=== PATIENT | male | born 1960 | race Caucasian/White ===

== ENCOUNTER 2018-08-19 08:12 | Day surgery (SDC) | payer OTHER ==
[~2018-08-19] VITALS: Ht 147.3 cm; Wt 55.2 kg
[2018-08-19] VITALS (13 sets, daily range): BP systolic 112–159; BP diastolic 58–80; PULSE 58–64; RESP 15–23; Ht 147.3 cm; Wt 55.2 kg
[~2018-08-19 08:12] MED LIST: LIDOCAINE 1% (MPF) 5 ML VIAL INJ ONE
[2018-08-19] MEDS ORDERED: METF500T24 PO (09:03)
[2018-08-19] MEDS ORDERED: LISI40TA3 PO (09:04)
[2018-08-19] MEDS ORDERED: AMLO5TAB4 PO (09:04)
[2018-08-19] MEDS ORDERED: ATOR40TA68 PO (09:05)
[2018-08-19] MEDS ORDERED: NEPAFENAC 0.1% 3 ML OPH OPER SCH (09:30)
[2018-08-19] MEDS ORDERED: CYCLOPENTOLATE 2% 2 ML OPH OPER SCH (09:30)
[2018-08-19] MEDS ORDERED: SOD CHLORIDE 0.9% 1,000 ML IV SCH (09:30)
[2018-08-19] MEDS ORDERED: PHENYLephrine 10% 5 ML OPH OPER SCH (09:30)
[2018-08-19] MEDS ORDERED: MOXIFLOXACIN 0.5% 3 ML OPH OPER ONE (09:30)
[2018-08-19] MEDS ORDERED: TIMOLOL MALEATE/PF 0.5% OCCUDOSE (0.3 ML) ONE (10:30)
[2018-08-19] MEDS ORDERED: EPINEPHrine 1 MG INJ ONE (10:30)
[2018-08-19] MEDS ORDERED: LIDOCAINE 1% (MPF) 5 ML VIAL ONE (10:30)
[2018-08-19] MEDS ORDERED: NA BICARB 50 MEQ/50 ML VIAL ONE (10:30)
[2018-08-19] MEDS ORDERED: CARBACHOL 0.01% 1.5 ML OPH INJ ONE (10:31)
--- NOTE | 2018-08-19 10:36 | PREAC ---
Date/Time of Note Date/Time of Note DATE: 08/19/18 TIME: 10:34 Anesthesia Eval and Record Evaluation Time Pre-Procedure Interview DATE: 08/19/18 TIME: 10:34 Age 57 Sex male NPO: 8 hrs Preoperative diagnosis left cataract Planned procedure left cataract extraction with IOL implant Past Medical History Past Medical History: Includes Cardio: HTN, Dyslipidemia Endo: Diabetes Surgery & Anesthesia Issues No known issue Meds Anticoagulation: No Beta Amor within 24 hr: No Reason Beta Amor not given: Pt. not on B-Amor Reported Medications Atorvastatin* (Atorvastatin*) 40 Mg Tablet, 40 MG PO QHS, #30 TAB 08/19/18 Amlodipine Besylate* (Norvasc*) 5 Mg Tablet, 5 MG PO DAILY, TAB 08/19/18 Lisinopril* (Lisinopril*) 40 Mg Tablet, 40 MG PO DAILY, #30 TAB 08/19/18 Metformin Hcl* (Metformin Hcl*) 500 Mg Tablet, 500 MG PO WITH BREAKFAST DINNE, #60 TAB 08/19/18 Current Medications Cyclopentolate HCl (Cyclogyl 2% Oph) 1 drop Q5 MIN X 3 OPER Last administered on 08/19/18at 09:12; Admin Dose 1 DROP; Start 08/19/18 at 09:30 Phenylephrine HCl (Ak-Dilate 10%) 1 drop Q5 MIN X3 OPER Last administered on 08/19/18at 09:12; Admin Dose 1 DROP; Start 08/19/18 at 09:30 Nepafenac ([place] Oph) 1 drop Q5 MIN X3 OPER Last administered on 08/19/18at 09:12; Admin Dose 1 DROP; Start 08/19/18 at 09:30 Sodium Chloride 1,000 ml @ 0 mls/hr Q0M IV ; Start 08/19/18 at 09:30 Meds reviewed: Yes Allergies Coded Allergies: No Known Allergy (Unverified , 08/19/18) Allergies Reviewed: Yes Labs/Studies Labs Reviewed: Reviewed by anesthesiologist test: N/A Studies: ECG Pre-procedure Exam Last vitals Vital Signs Date Temp Pulse Resp B/P (MAP) Pulse Ox O2 O2 Flow FiO2 Time Delivery Rate 08/19/18 98.3 58 16 159/70 99 Room Air 09:17 (99) Airway: Adequate mouth opening, Adequate thyromental dist Mallampati: Mallampati II Teeth: Normal Lung: Normal Heart: Normal ASA Physical Status ASA physical status: 2 Emergency: None Planned Anesthetic General/MAC: MAC Planned Pain Management Parenteral pain med, Local by surgeon Pre-operative Attestations Prior to commencing anesthesia and surgery, the patient was re-evaluated, there was verification of: *The patient's identity *The results of appropriate recent lab work and preoperative vital signs *The above evaluation not changing prior to induction *Anesthetic plan, risk benefits, alternative and complications discussed with patient/family; questions answered; patient/family understands, accepts and wishes to proceed. LAURA SALINAS INTAKE CLERK Aug 19, 2018 10:36
--- NOTE | 2018-08-19 10:44 | HPN ---
Date/Time of Note Date/Time of Note DATE: 08/19/18 TIME: 10:44 Interval H&P Admission Note Pt. seen H&P reviewed: No system changes SYLVIA MCCLOUD MD Aug 19, 2018 10:44
[2018-08-19] MEDS ORDERED: FENTAnyl 50 MCG/ML VIAL ONE (10:52)
[2018-08-19] MEDS ORDERED: MIDAZOLAM 1 MG/ML 2 ML INJ ONE (10:52)
[2018-08-19] MEDS ORDERED: LIDOCAINE 2% (SDV) 5 ML INJ ONE (10:52)
[2018-08-19] MEDS ORDERED: PROPOFOL 20 ML ONE (10:52)
[2018-08-19] MEDS ORDERED: OXYCODONE/ACETAMINOPHEN (5/325) TAB PO PRN ×2 (11:00)
[2018-08-19] MEDS ORDERED: LABETALOL HCL 20MG INJ IV PRN (11:00)
[2018-08-19] MEDS ORDERED: ONDANSETRON 4 MG INJ IV PRN (11:00)
[2018-08-19] MEDS ORDERED: hydrALAzine 20 MG INJ IV PRN (11:00)
[2018-08-19] MEDS ORDERED: HYDROmorphONE 1 MG/5 ML IV SYRINGE IV PRN (11:00)
[2018-08-19] MEDS ORDERED: FENTAnyl 50 MCG/ML VIAL IV PRN ×2 (11:00)
[2018-08-19] MEDS ORDERED: TIMOLOL 0.5% 5 ML OPH LEFT EYE ONE (11:40)
--- NOTE | 2018-08-19 12:01 | PAC ---
Date/Time of Note Date/Time of Note DATE: 08/19/18 TIME: 12:00 Post-Anesthesia Notes Post-Anesthesia Note Last documented vital signs Vital Signs Date Temp Pulse Resp B/P (MAP) Pulse Ox O2 O2 Flow FiO2 Time Delivery Rate 08/19/18 98.3 58 16 159/70 99 Room Air 09:17 (99) Activity: WNL Respiratory function: WNL Cardiovascular function: WNL Mental status: Baseline Pain reasonably controlled: Yes Hydration appropriate: Yes Nausea/Vomiting absent: Yes Comments BP 118/63 Spo2 97% HR 62 RR 12 HR 99F LAURA SALINAS CRNA Aug 19, 2018 12:01
--- NOTE | 2018-08-19 14:21 | OPR ---
DATE OF OPERATION: 08/19/2018 SURGEON: Sylvia Castillo MD HOSPITALITY COORDINATOR: None. ANESTHESIOLOGIST: ____ PREOPERATIVE DIAGNOSIS: Senile nuclear sclerotic cataract left eye. POSTOPERATIVE DIAGNOSIS: Senile nuclear sclerotic cataract, left eye. OPERATION: Kelman phacoemulsification with implantation of intraocular lens left eye. DESCRIPTION OF PROCEDURE: Following standard preparation and draping of the patient, a lid speculum was placed for immobilization of the lids. A SuperBlade incision was made at the corneal limbal junc tion for access into the anterior chamber. Approximately 0.03 mL of nonpreserved 1% Xylocaine was in stilled into the anterior chamber, and after approximately 5 to 10 seconds, this was replaced with Vi scoat. A clear corneal incision was then made using the 3.2 mm keratome, following which an anterior circular capsulorrhexis was made. The major portion of the lens cortex and nucleus were then disloc ated from the capsular bag using hydrodissection. The KPE tip was introduced into the eye and contro lling tumbling of the lens with a 2-handed technique, the major portion of the lens cortex and nucleu s was removed, maintaining the lens in the plane of the iris. The remaining cortical material was re moved via the irrigating aspirating instrument. The capsular bag and the anterior chamber were now r eformed using Viscoat. The proper power lens was then placed in the capsular bag. The viscoelastic was then removed from the eye and the eye reformed with balanced salt solution. One 10-0 Vicryl sutu re was then used to ensure closure of the corneal incision. The eye was reformed to normal pressure using balanced salt solution. The eye and cul-de-sacs were now simply flooded with 5% Betadine solut ion. One drop of Vigamox and 1 drop of Betagan solution were instilled into the eye. A light pressu re dressing was applied, and the patient was returned to the recovery room in satisfactory condition. Dictated By: SYLVIA CASTELLON/BENJA Conf#: [id number] DID#: [id number]
== END 2018-08-19 14:36 | disposition home or self-care (01) ==
LOC: SDS 08:12
PROVIDERS: ATTEND Ophthalmology
DX: H25.12 Age-related nuclear cataract, left eye (principal); I10 Essential (primary) hypertension; E11.9 Type 2 diabetes mellitus without complications; E78.5 Hyperlipidemia, unspecified
CPT/HCPCS: 66984; 82962; J0171; J2250; J3010; V2632; Z7512; Z7610